=== PATIENT | male | born 1985 | race Caucasian/White ===

== ENCOUNTER 2020-02-23 05:08 | Emergency (ER) | payer BC ==
[~2020-02-23] VITALS: Ht 175.3 cm; Wt 95.3 kg
--- NOTE | 2020-02-23 05:15 | NUR ---
Dr. Rowe is at bedside for MSE.
[2020-02-23] MEDS ORDERED: NITROGLYCERIN 0.4 MG/TAB BOTTLE SL ONE ×2 (05:30→05:31)
[2020-02-23] MEDS ORDERED: ASPIRIN 325 MG TABLET PO ONE (05:30)
[2020-02-23] MEDS ORDERED: ASPIRIN 325 MG TABLET ONE (05:31)
[2020-02-23 05:38] LABS: BASOPHILS # (AUTO) 0.1 K/uL (0.0-8.0); BASOPHILS % (AUTO) 0.7 % (0.0-2.0); EOSINOPHILS # (AUTO) 0.2 K/uL (0.0-0.7); EOSINOPHILS % (AUTO) 2.3 % (0.0-7.0); HEMATOCRIT 46.6 % (36.7-47.1); HEMOGLOBIN 15.9 g/dL (12.5-16.3); LYMPHOCYTES # (AUTO) 2.9 K/uL (20.0-40.0); LYMPHOCYTES % (AUTO) 31.8 % (20.5-51.5); MEAN CORPUSCULAR HEMOGLOBIN 31.1 uug (23.8-33.4); MEAN CORPUSCULAR HGB CONC 34 g/dL (32.5-36.3); MEAN CORPUSCULAR VOLUME 91.1 fL (73.0-96.2); MONOCYTES # (AUTO) 0.7 K/uL (2.0-10.0); MONOCYTES % (AUTO) 7.7 % (0.0-11.0); NEUTROPHILS # (AUTO) 5.2 K/uL (1.8-8.9); NEUTROPHILS % (AUTO) 57.5 % (38.5-71.5); PLATELET COUNT (AUTO) 138 K/uL (152-348); RED BLOOD CELL COUNT(AUTO) 5.11 MIL/uL (4.06-5.63)
[2020-02-23 05:48] LABS: BILIRUBIN,DIRECT 0.1 mg/dL (0.0-0.2); BILIRUBIN,TOTAL 0.3 mg/dL (0.2-1.0); CREATININE 1.1 mg/dL (0.6-1.3); POTASSIUM 3.7 mmol/L (3.5-5.1); TOTAL PROTEIN, SERUM 6.7 g/dL (6.4-8.2)
--- NOTE | 2020-02-23 07:01 | NUR ---
Report given to AM nurse.
--- NOTE | 2020-02-23 07:22 | NUR ---
PT DECIDED TO LEAVE HOSPITAL ER AMA. DR MATTSON EXPLAINED ALL RISKS OF LEAVING AMA TO THE PT. PT VERBALISED FULL UNDERSTANDING OF DR's INSTRUCTIONS. PT SIGNED AMA FORM AND LEFT HOSPITAL WITH HIS RELATIVE BY TAXI.
[2020-02-23 07:26] VITALS: BP 133/74
== END 2020-02-23 07:27 | disposition left against medical advice (07) ==
LOC: ER 05:16
DX: R07.9 Chest pain, unspecified (principal); F17.210 Nicotine dependence, cigarettes, uncomplicated; Z82.49 Family history of ischemic heart disease and other diseases of the circulatory system
CPT/HCPCS: 36415; 70030-TC; 71045; 85025; 93005; A4663